=== PATIENT | female | born 1985 | race Two or more races ===

== ENCOUNTER 2019-05-17 11:42 | Emergency (ER) | payer OTHER ==
[2019-05-17 11:47] VITALS: BP 133/82; PULSE 87; TEMP 98; BMI 41.5
[2019-05-17] MEDS ORDERED: ACETAMINOPHEN WITH CODEINE 300MG/30MG TABLET PO ONE (12:33)
--- NOTE | 2019-05-17 12:47 | PDOC ---
History of Present Illness - General Chief Complaint: Toothache Stated Complaint: TOOTHACHE Time Seen by Provider: 05/17/19 11:48 History Source: Patient Exam Limitations: No Limitations - History of Present Illness Initial Comments: 05/17/19 12:41 33-year-old female denies past medical history presents complaining of dental pain since yesterday. Denies trauma, fever, chills or any other complaints. Took acetaminophen 1 g at 9 AM today without much relief. ROS: GENERAL/CONSTITUTIONAL: No fever, chills, weakness, dizziness HEAD, EYES, EARS, NOSE AND THROAT: Dental pain, no changes in vision, No ear pain or discharge, No sore throat CARDIOVASCULAR: No chest pain RESPIRATORY: No shortness of breath or cough GASTROINTESTINAL: No pain, nausea, vomiting, diarrhea or constipation GENITOURINARY: No dysuria MUSCULOSKELETAL: No neck or back pain SKIN: No rash NEUROLOGIC: No headache, vertigo, loss of consciousness, or loss of sensation PE: GENERAL: well-appearing, NAD HEAD: NCAT EYES: Pupils equal, round and reactive to light, sclera anicteric, conjunctiva clear ENT: Tooth #19 with mild gum erythema, no fluctuance, no drainage noted, partially cracked tooth noted, pharynx: no erythema, no exudate, uvula midline, no facial swelling noted NECK: supple CHEST: nontender RESP: clear, no w/r/r CARDIO: rrr, no m/g/r ABD: +BS, soft, nontender, non distended BACK: no midline spinal ttp, no CVAT EXTREMITIES: Normal range of motion, no edema NEUROLOGICAL: Normal speech, normal gait SKIN: Warm, Dry Past History - Past Medical History Allergies/Adverse Reactions: Allergies Allergy/AdvReac Type Severity Reaction Status Date / Time No Known Allergies Allergy Verified 05/17/19 11:47 Home Medications: Ambulatory Orders Acetaminophen W/ Codeine #3 [Tylenol # 3 -] 1 tab PO Q6H #10 tablet MDD 4 Amoxicillin - [Amoxicillin 500mg Capsule -] 500 mg PO TID 7 Days #21 capsule 07/05 COPD: No - Psycho Social/Smoking Cessation Hx Smoking History: Never smoked *Physical Exam - Vital Signs Last Vital Signs Temp Pulse Resp BP Pulse Ox 98 F 87 18 133/82 98 05/17/19 11:44 05/17/19 11:44 05/17/19 11:44 05/17/19 11:44 05/17/19 11:44 Medical Decision Making - Medical Decision Making 05/17/19 12:45 33-year-old healthy female presents with dental pain. We will treat with amoxicillin and acetaminophen with codeine Advised patient to follow-up with dentist within 2 to 3 days Return precautions discussed Discharge - Discharge Information Problems reviewed: Yes Clinical Impression/Diagnosis: Pain, dental Condition: Stable Disposition: HOME - Admission No - Additional Discharge Information Prescriptions: Acetaminophen W/ Codeine #3 [Tylenol # 3 -] 1 tab PO Q6H #10 tablet MDD 4 Amoxicillin - [Amoxicillin 500mg Capsule -] 500 mg PO TID 7 Days #21 capsule - Follow up/Referral - Patient Discharge Instructions Additional Instructions: Take amoxicillin 500 mg 1 tablet every 8 hours for 7 days Take ibuprofen 600 mg every 6 hours and Tylenol #3 1 tab every 6 hours as needed for pain Follow-up with dentist within 2 to 3 days return to ED if worsening pain, facial swelling, redness, fever, chills - Post Discharge Activity
[2019-05-17] MEDS ORDERED: ACETAMINOPHEN WITH CODEINE 300MG/30MG TABLET ONE (12:52)
== END 2019-05-17 12:57 | disposition home or self-care (01) ==
LOC: JERFT 11:42
DX: K08.89 Other specified disorders of teeth and supporting structures (principal)
CPT/HCPCS: 99281-25

== ENCOUNTER 2021-01-12 10:53 | Emergency (ER) | payer OTHER ==
[2021-01-12 11:19] VITALS: BP 124/85; PULSE 66; TEMP 98.1; BMI 43.2
[2021-01-12] MEDS ORDERED: METHOCARBAMOL 500 MG TABLET PO ONE (11:44)
[2021-01-12] MEDS ORDERED: KETOROLAC TROMETHAMINE 30 MG/1 ML VIAL IM ONE (11:44)
[2021-01-12] MEDS ORDERED: KETOROLAC TROMETHAMINE 30 MG/1 ML VIAL ONE (11:44)
[2021-01-12] MEDS ORDERED: METHOCARBAMOL 500 MG TABLET ONE (11:44)
== END 2021-01-12 12:10 | disposition home or self-care (01) ==
LOC: JERFT 10:53
PROC: 3E0233Z Introduction of Anti-inflammatory into Muscle, Percutaneous Approach (ICD-10-PCS; principal; 2021-01-12)
DX: M62.838 Other muscle spasm (principal); S46.012A Strain of muscle(s) and tendon(s) of the rotator cuff of left shoulder, initial encounter; Y92.84 Military training ground as the place of occurrence of the external cause; Y92.89 Other specified places as the place of occurrence of the external cause
CPT/HCPCS: 96372; 99283-25

== ENCOUNTER 2023-11-26 23:08 | Emergency (ER) | payer SELFPAY ==
[2023-11-26 23:13] VITALS: BP 138/92; PULSE 104; RESP 16; TEMP 98.1; BMI 46.5
[2023-11-27] MEDS ORDERED: IBUPROFEN 400 MG TABLET (FP) PO ONE (00:25)
[2023-11-27] MEDS ORDERED: ACETAMINOPHEN 325 MG TABLET (FP) ONE (00:25)
[2023-11-27] MEDS: IBUPROFEN 400 MG TABLET (FP) PO ONE (00:27)
[2023-11-27] MEDS: ACETAMINOPHEN 325 MG TABLET (FP) PO ONE (00:27)
[2023-11-27] MEDS: PHENYLEPHRINE HCL/COCOA BUTTER 1 EACH SUPP.RECT PR ONE (00:35)
[2023-11-27] MEDS ORDERED: DOCUSATE SODIUM 100 MG CAPSULE (FP) PO ONE (01:02)
[2023-11-27] MEDS: DOCUSATE SODIUM 100 MG CAPSULE (FP) PO ONE (01:04)
== END 2023-11-27 01:04 | disposition home or self-care (01) ==
LOC: JER 23:08
DX: K64.4 Residual hemorrhoidal skin tags (principal); K62.89 Other specified diseases of anus and rectum
CPT/HCPCS: 99283-25